=== PATIENT | female | born 1970 | race Caucasian/White ===

== ENCOUNTER 2017-11-16 02:59 | Emergency (ER) | payer OTHER ==
[~2017-11-16] VITALS: Ht 175.3 cm; Wt 79.8 kg
[2017-11-16] MEDS ORDERED: HYDROCODONE-AP1 EAC6 PO (03:09)
[2017-11-16] MEDS ORDERED: PREDNISONE 20 M20 M1 PO (03:11)
[2017-11-16] MEDS ORDERED: FLEXERIL PO (03:11)
[2017-11-16] MEDS ORDERED: NORCO 5-325 TA1 EACH PO (03:11)
[2017-11-16 03:47] VITALS: BP 132/78
== END 2017-11-16 03:46 | disposition home or self-care (01) ==
LOC: M.ERS 02:59
DX: M54.9 Dorsalgia, unspecified (principal); Z90.711 Acquired absence of uterus with remaining cervical stump

== ENCOUNTER 2019-02-15 11:30 | Emergency (ER) | payer OTHER ==
[~2019-02-15] VITALS: Ht 175.3 cm; Wt 81.2 kg
[~2019-02-15 11:30] MED LIST: FLEXERIL PO; HYDROCODONE-AP1 EAC6 PO; NORCO 5-325 TA1 EACH PO; PREDNISONE 20 M20 M1 PO
[2019-02-15] MEDS ORDERED: HYDROCHLOROTH12.5 M1 PO (11:39)
[2019-02-15] MEDS ORDERED: LIPITOR 20 MG T20 M1 PO (11:39)
[2019-02-15 12:13] LABS: ABSOLUTE BASOPHILS 0.1 thou/uL (0.0-0.2); ABSOLUTE EOSINOPHILS 0.4 thou/uL (0.0-0.7); ABSOLUTE LYMPHOCYTES 1.5 thou/uL (0.8-5.3); ABSOLUTE MONOCYTES 0.6 thou/uL (0.0-1.2); ABSOLUTE NEUTROPHILS 3.7 thou/uL (1.6-8.1); EOSINOPHILS 6.3 %; HEMATOCRIT 42.7 % (37.0-47.0); HEMOGLOBIN 14.6 gm/dL (12.0-15.0); MCH 30.6 pg (26.0-34.0); MCHC 34.1 g/dL (28.0-37.0); MCV 89.6 fL (80.0-100.0); MONOCYTES 9.2 %; MPV 8.3 fl. (7.2-11.1); NUCLEATED RBCS 0 /100WBC; PLATELET COUNT* 211 thou/uL (150-400); POLYS 59.5 %; RBC 4.76 mil/uL (4.20-5.00); RDW-CV 12.1 % (10.5-14.5); WBC 6.2 thou/uL (4.0-11.0)
[2019-02-15 12:23] LABS: ANION GAP 6 mmol/L (7-16); BUN 11 mg/dL (7-18); CALCIUM 9.3 mg/dL (8.5-10.1); CHLORIDE 100 mmol/L (98-107); CO2 31 mmol/L (21-32); CREATININE 0.9 mg/dL (0.6-1.3); GLUCOSE 102 mg/dL (70-99); POTASSIUM 3.5 mmol/L (3.5-5.1); SODIUM 137 mmol/L (136-145)
[2019-02-15 12:33] LABS: ALBUMIN 3.8 g/dL (3.4-5.0); ALKALINE PHOSPHATASE 72 U/L (46-116); LIPASE 134 U/L (73-393); MAGNESIUM 1.9 mg/dL (1.8-2.4); NT-PRO BRAIN NAT PEPTIDE 90 pg/mL (<300); SGOT 25 U/L (15-37); SGPT 40 U/L (30-65); TOTAL BILIRUBIN 0.5 mg/dL (<0.1-1.0); TOTAL PROTEIN 7.4 g/dL (6.4-8.2); TROPONIN-I LEVEL <0.06 ng/mL (<0.06)
[2019-02-15 12:52] LABS: URINE BILIRUBIN NEGATIVE (Negative); URINE BLOOD 1+ (Negative); URINE CLARITY CLEAR; URINE COLOR YELLOW; URINE GLUCOSE-RANDOM NEGATIVE (Negative); URINE KETONES NEGATIVE (Negative); URINE LEUKOCYTES-REFLEX 1+ (Negative); URINE NITRITE-REFLEX NEGATIVE (Negative); URINE PROTEIN NEGATIVE (Negative); URINE SPECIFIC GRAVITY <= 1.005 (1.005-1.030); URINE UROBILINOGEN 0.2 E.U./dl (0.2-1.0)
[2019-02-15 12:58] LABS: AMP/METHAMP Negative (Negative); BARBITURATES Negative (Negative); BENZODIAZEPINES Negative (Negative); COCAINE Negative (Negative); METHADONE Negative (Negative); OPIATES Negative (Negative); PCP Negative (Negative); THC Negative (Negative)
[2019-02-15 13:01] LABS: BACTERIA-REFLEX 1-9 Few /HPF (None Seen); CASTS None Seen /LPF (None Seen); CRYSTALS None Seen /LPF (None Seen); MUCUS 0-3 Light strn/LPF (None Seen); SQUAMOUS 4-10 Moderate /LPF (0-3); URINE RBC 0-2 Rare /HPF (0-2); URINE WBC-REFLEX 0-5 Rare /HPF (0-5)
[2019-02-15] MEDS ORDERED: AMOXICILLIN875 MG PO (13:10)
[2019-02-15 13:15] VITALS: BP 108/72
--- NOTE | 2019-02-15 18:35 | EKG ---
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1970 Requested By: Rich Martin Order Number: [id number] MD: Dylan Nair Measurements Intervals [place] Rate: 94 P: 57 NH: 147 QRS: -77 QRSD: 89 T: 16 QT: 344 QTc: 431 Interpretive Statements Sinus rhythm Probable left atrial enlargement Low voltage throughout Inferior infarct, old Compared to ECG 01/12/2007 11:28:24 Myocardial infarct finding now present Right superior axis no longer present Electronically Signed On 02-15-2019 18:35:32 CDT by Dylan Nair [email or web address] <ELECTRONICALLY SIGNED> By: Dylan Nair MD, [facility] 02/15/19 1835 1135 113 Dylan Nair MD, [facility] /EPI
[2019-02-16 02:10] LABS: T3 UPTAKE 23 % (24-39)
== END 2019-02-15 13:15 | disposition home or self-care (01) ==
LOC: M.ERS 11:30
PROVIDERS: Emergency Medicine
DX: J32.9 Chronic sinusitis, unspecified (principal); R20.0 Anesthesia of skin; R20.2 Paresthesia of skin; K21.9 Gastro-esophageal reflux disease without esophagitis; M54.9 Dorsalgia, unspecified; G89.29 Other chronic pain; Z90.711 Acquired absence of uterus with remaining cervical stump

== ENCOUNTER 2021-03-10 07:40 | Emergency (ER) | payer OTHER ==
[~2021-03-10] VITALS: Ht 175.3 cm; Wt 84.4 kg
[~2021-03-10 07:40] MED LIST changes: +AMOXICILLIN875 MG PO; +HYDROCHLOROTH12.5 M1 PO; +LIPITOR 20 MG T20 M1 PO
[2021-03-10] MEDS ORDERED: EFFEXOR XR37.5 MG PO (07:57)
[2021-03-10] MEDS ORDERED: WELLBUTRIN SR150 MG PO (07:57)
[2021-03-10] MEDS ORDERED: OMEPRAZOLE 20 M20 M1 PO (07:57)
[2021-03-10] MEDS ORDERED: HYDROCODON-ACE1 EAC7 PO (08:52)
[2021-03-10 09:12] VITALS: BP 137/80
== END 2021-03-10 09:20 | disposition home or self-care (01) ==
LOC: M.ERS 07:40
DX: S42.002A Fracture of unspecified part of left clavicle, initial encounter for closed fracture (principal); K21.9 Gastro-esophageal reflux disease without esophagitis; Z90.711 Acquired absence of uterus with remaining cervical stump; Z79.899 Other long term (current) drug therapy; W18.39XA Other fall on same level, initial encounter; Y93.89 Activity, other specified; Y92.89 Other specified places as the place of occurrence of the external cause; Y99.8 Other external cause status